=== PATIENT | female | born 1975 | race Caucasian/White ===

== ENCOUNTER 2018-12-13 22:34 | Emergency (ER) | payer OTHER ==
[~2018-12-13] VITALS: Ht 160 cm; Wt 95.3 kg
[~2018-12-13 22:34] MED LIST: ACETAMINOPHEN-1 EAC1 PO; ATIVAN1 MG PO; BUSPAR30 MG PO; CLONAZEPAM 1 MG1 M1 PO; GABAPENTIN 100100 MG PO; NAPROSYN500 M1 PO; PRAZOSIN 1 MG CA1 MG PO; SEROQUEL 50 MG50 MG PO; VIIBRYD40 MG PO; VYVANSE50 MG PO; ZANAFLEX4 MG PO; ZOFRAN4 MG PO; ZOLOFT25 MG PO
[2018-12-13] MEDS ORDERED: LAMICTAL XR100 MG PO (22:51)
[2018-12-13] MEDS ORDERED: PROZAC20 MG PO (22:52)
[2018-12-13 23:07] LABS: ABSOLUTE BASOPHILS 0.1 thou/uL (0.0-0.2); ABSOLUTE EOSINOPHILS 0.1 thou/uL (0.0-0.7); ABSOLUTE LYMPHOCYTES 1.4 thou/uL (0.8-5.3); ABSOLUTE MONOCYTES 0.5 thou/uL (0.0-1.2); ABSOLUTE NEUTROPHILS 6.1 thou/uL (1.6-8.1); BASOPHILS 0.9 %; EOSINOPHILS 1.8 %; HEMATOCRIT 41.9 % (37.0-47.0); HEMOGLOBIN 14.6 gm/dL (12.0-15.0); LYMPHOCYTES 16.8 %; MCH 28.8 pg (26.0-34.0); MCV 82.3 fL (80.0-100.0); MONOCYTES 5.8 %; MPV 6.7 fl. (7.2-11.1); NUCLEATED RBCS 0 /100WBC; PLATELET COUNT* 266 thou/uL (150-400); POLYS 74.7 %; RBC 5.09 mil/uL (4.20-5.00); RDW-CV 13.4 % (10.5-14.5); WBC 8.1 thou/uL (4.0-11.0)
[2018-12-13 23:15] LABS: CALCIUM 10.3 mg/dL (8.5-10.1); POTASSIUM 3.2 mmol/L (3.5-5.1)
[2018-12-13 23:20] LABS: ALBUMIN 4.1 g/dL (3.4-5.0); TOTAL BILIRUBIN 0.8 mg/dL (<0.1-1.0); TOTAL PROTEIN 7.3 g/dL (6.4-8.2)
[2018-12-13 23:35] LABS: URINE BILIRUBIN NEGATIVE (Negative); URINE BLOOD NEGATIVE (Negative); URINE CLARITY SL CLOUDY; URINE COLOR YELLOW; URINE GLUCOSE-RANDOM NEGATIVE (Negative); URINE KETONES NEGATIVE (Negative); URINE LEUKOCYTES-REFLEX NEGATIVE (Negative); URINE NITRITE-REFLEX NEGATIVE (Negative); URINE PROTEIN 1+ (Negative); URINE SPECIFIC GRAVITY 1.015 (1.005-1.030); URINE UROBILINOGEN 0.2 E.U./dl (0.2-1.0)
[2018-12-13 23:41] LABS: AMP/METHAMP Negative (Negative); BARBITURATES Negative (Negative); BENZODIAZEPINES Negative (Negative); COCAINE Negative (Negative); METHADONE Negative (Negative); OPIATES Negative (Negative); PCP Negative (Negative); THC Negative (Negative)
[2018-12-14 01:23] LABS: AMORPHOUS PHOSPHATES Many /LPF (None Seen)
[2018-12-14] MEDS ORDERED: ZOFRAN ODT4 MG PO (02:11)
[2018-12-14 02:20] VITALS: BP 140/70
--- NOTE | 2018-12-15 12:25 | EKG ---
[place] [address] ELECTROCARDIOGRAM REPORT Name: LELIA EMERSON Room: [facility]#: [id number] Admission: 12/13/18 Attend Phys: Discharge: 12/14/18 Date of : 73 Report #: [id number] THIS REPORT FOR: //name// [facility] ED Test Date: 2018-12-13 Test Time: 22:49:56 Pat Name: LELIA BROOKS Department: Room: Gender: F Processing Engineer: [facility] : 1975 Requested By: Kandis Corrales Order Number: [id number] MD: Faustino Moreno Measurements Intervals [place] Rate: 62 P: 44 HI: 124 QRS: 40 QRSD: 99 T: 24 QT: 488 QTc: 496 Interpretive Statements Sinus rhythm Consider inferior infarct Compared to ECG 10/07/2015 17:10:49 no change Electronically Signed On 12-15-2018 12:25:41 CDT by Faustino Moreno [email or web address] <ELECTRONICALLY SIGNED> By: Faustino Moreno MD, [facility] 12/15/18 1225 [id number] Faustino Moreno MD, FACC /EPI
== END 2018-12-14 02:20 | disposition home or self-care (01) ==
LOC: M.ERS 22:34
PROVIDERS: Emergency Medicine
DX: K21.9 Gastro-esophageal reflux disease without esophagitis (principal); R11.2 Nausea with vomiting, unspecified; E87.6 Hypokalemia; E83.42 Hypomagnesemia; F41.9 Anxiety disorder, unspecified; F32.9 Major depressive disorder, single episode, unspecified; Z90.49 Acquired absence of other specified parts of digestive tract; Z88.0 Allergy status to penicillin; Z88.1 Allergy status to other antibiotic agents